=== PATIENT | female | born 1950 | race Caucasian/White ===

== ENCOUNTER 2023-09-06 17:32 | Emergency (ER) | payer OTHER, SELFPAY ==
[2023-09-06 17:40] VITALS: BP 161/104; PULSE 84; RESP 16; TEMP 37; O2SAT 94
--- NOTE | 2023-09-06 18:22 | ED.HA ---
HPI - Headache General Chief Complaint: Headache Stated Complaint: HEADACHE/DIZZY Time Seen by Provider: 09/06/23 18:15 Source: patient and RN notes reviewed Mode of arrival: ambulatory Limitations: no limitations History of Present Illness HPI Narrative: Patient presents today complaining of headache and dizziness x3 days. Dizziness is worse with head movement and also when she stands or lays down. Denies chest pain, shortness of breath, vision changes, numbness or tingling in the extremities. Currently rates her headache 5/10 and has been taking sinus medicine, Aleve with mild relief. Denies any recent illness. Related Data Home Medications Medication Instructions Recorded Confirmed lisinopril 10 1 tablet PO DAILY 09/06/23 09/06/23 mg-hydrochlorothiazide 12.5 mg tablet pantoprazole 40 mg tablet,delayed 40 mg PO BID 09/06/23 09/06/23 release simvastatin 10 mg tablet 10 mg PO HS 09/06/23 09/06/23 venlafaxine 150 mg 150 mg PO DAILY 09/06/23 09/06/23 capsule,extended release 24 hr Allergies Allergy/AdvReac Type Severity Reaction Status Date / Time codeine Allergy Unknown Verified 09/06/23 17:57 morphine Allergy Unknown Verified 09/06/23 17:57 Penicillins Allergy Unknown Verified 09/06/23 17:57 Tetanus Vaccines and Toxoid Allergy Unknown Verified 09/06/23 17:57 Review of Systems Review of Systems: CONSTITUTIONAL: Denies body aches, fever, chills, or sweats. EYES: Denies visual changes, redness, or discharge. ENT: Denies rhinorrhea, congestion, sore throat, or otalgia. CARDIOVASCULAR: Denies chest pain, palpitations, or edema. RESPIRATORY: Denies cough or dyspnea. GASTROINTESTINAL: Denies abdominal pain, nausea, vomiting, or diarrhea. GENITOURINARY: Denies dysuria or hematuria. SKIN: Denies rash, itching, or wounds. MUSCULOSKELETAL: Denies back pain, joint pain, or myalgia. NEUROLOGIC: Denies numbness, tingling, or weakness.+ headache, dizziness PSYCH: Denies depression or anxiety. [facility] Past Medical History Medical History (Updated 09/06/23 @ 20:23 by Princess Franklin, [employer], BC) GERD (gastroesophageal reflux disease) High cholesterol Hypertension Comments At time of signature, I have reviewed and agree with nursing past medical, surgical, social and family history unless otherwise noted. Please see nursing chart for further information. There is no relevant family history pertinent to the presenting complaint Exam Narrative: GENERAL: Ill-appearing, well-nourished, and in no acute distress. HEAD: Normocephalic, atraumatic. EYES: EOMI. PERRL. No nystagmus. No redness or drainage. Conjunctivae normal. ENT: Mucous membranes pink and moist. Nares clear. No rhinorrhea. TMs normal bilaterally. Throat normal. Uvula midline. NECK: Normal AROM. Supple. No lymphadenopathy. CHEST: No respiratory distress. Clear to auscultation. HEART: Regular rate and rhythm. No murmur appreciated. Normal peripheral pulses. EXTREMITIES: Normal range of motion. No edema. SKIN: Warm, dry, no rash. Capillary refill normal. Normal skin turgor. NEURO: No focal deficits. Alert and oriented x3. Gait very unsteady. PSYCH: Normal affect. No signs of depression or anxiety. Course Course Level of Care: Express Care Visit Vital Signs Vital signs: Vital Signs Temperature 98.6 F 09/06/23 17:40 Pulse Rate 84 09/06/23 17:40 Respiratory Rate 16 09/06/23 17:40 Blood Pressure 161/104 H 09/06/23 17:40 Pulse Oximetry 94 09/06/23 17:40 Temperature 98.6 F 09/06/23 17:40 Pulse Rate 84 09/06/23 17:40 Respiratory Rate 16 09/06/23 17:40 Blood Pressure 161/104 H 09/06/23 17:40 Pulse Oximetry 94 09/06/23 17:40 Oxygen Delivery Room Air 09/06/23 17:49 Reviewed MDM - Headache MDM Narrative Medical decision making narrative: COVID-19 negative. Patient's headache and dizziness has not improved since onset and her blood pressure is quite high. Recommend that she go to t
--- NOTE | 2023-09-06 18:37 | PC.NURSE ---
PT DECLINES TRANSFER TO ER, IS AWARE OF RISKS AND BENEFITS, SIGNS AMA. FAMILY AT BEDSIDE AWARE OF PT DECISION AND TRANSPORTS PT HOME. PT IS DIZZY UPON DC. DOES AMBULATE OUT OF CLINIC WITH STEADY GAIT.
== END 2023-09-06 18:30 | disposition left against medical advice (07) ==
PROVIDERS: Emergency Provider Nurse Practitioner; PCP Family Medicine
DX: R42 Dizziness and giddiness (principal); R51.9 Headache, unspecified; Z20.822 Contact with and (suspected) exposure to COVID-19; K21.9 Gastro-esophageal reflux disease without esophagitis; E78.00 Pure hypercholesterolemia, unspecified; I10 Essential (primary) hypertension
CPT/HCPCS: 87426; 99213; C9803; G0463